=== PATIENT | male | born 1970 | race Two or more races ===

== ENCOUNTER 2020-09-05 08:44 | Emergency (ER) | payer SELFPAY ==
[~2020-09-05] VITALS: Ht 157.5 cm; Wt 86.2 kg
[~2020-09-05 08:44] MED LIST: ALBU90OI INH; DOXY100 PO; INDO50 PO
[2020-09-05] MEDS ORDERED: ALBU90OI INH (09:12)
[2020-09-05] MEDS ORDERED: SYMBICORT 160-4.6 GM INH (09:12)
== END 2020-09-05 09:33 | disposition home or self-care (01) ==
LOC: ER 08:44
DX: J45.901 Unspecified asthma with (acute) exacerbation (principal); Z79.51 Long term (current) use of inhaled steroids; Z79.899 Other long term (current) drug therapy
CPT/HCPCS: 94640; 99284